=== PATIENT | female | born 1955 | race Caucasian/White ===

== ENCOUNTER 2018-02-22 21:13 | Emergency (ER) | payer OTHER ==
[~2018-02-22] VITALS: Ht 160 cm; Wt 86.2 kg
[2018-02-23] MEDS ORDERED: FURO20 PO
[2018-02-23] MEDS ORDERED: LISI5 PO
[2018-02-23] MEDS ORDERED: LEVSOD75 PO (00:01)
[2018-02-23] MEDS ORDERED: PROB500 PO (00:01)
[2018-02-23] MEDS ORDERED: Bactrim 400-801 EACH PO (02:03)
== END 2018-02-23 02:25 | disposition home or self-care (01) ==
LOC: ER 21:13
DX: L02.31 Cutaneous abscess of buttock (principal); I10 Essential (primary) hypertension; Z88.0 Allergy status to penicillin; Z88.5 Allergy status to narcotic agent; Z79.899 Other long term (current) drug therapy
CPT/HCPCS: 10060; 87070; 87205; 99282-25

== ENCOUNTER 2018-03-31 03:40 | Emergency (ER) | payer OTHER ==
[~2018-03-31] VITALS: Ht 160 cm; Wt 83.9 kg
[~2018-03-31 03:40] MED LIST: Bactrim 400-801 EACH PO; FURO20 PO; LEVSOD75 PO; LISI5 PO; PROB500 PO
[2018-03-31] MEDS ORDERED: SERT25 (04:03)
[2018-03-31] MEDS ORDERED: TRAZ50 (04:03)
[2018-03-31] MEDS ORDERED: LANS15EC (04:03)
[2018-03-31] MEDS ORDERED: Flector1 EACH TOP (04:56)
[2018-03-31] MEDS ORDERED: Percocet 5-3251 EACH PO (04:56)
== END 2018-03-31 05:14 | disposition home or self-care (01) ==
LOC: ER 03:40
DX: R07.89 Other chest pain (principal); I10 Essential (primary) hypertension; Z88.0 Allergy status to penicillin; Z88.5 Allergy status to narcotic agent; Z79.899 Other long term (current) drug therapy
CPT/HCPCS: 71046; 96372; 99283-25; J1170

== ENCOUNTER 2020-03-26 18:58 | Emergency (ER) | payer MEDICARE, BC ==
[~2020-03-26] VITALS: Ht 160 cm; Wt 85.3 kg
[~2020-03-26 18:58] MED LIST changes: +Flector1 EACH TOP; +LANS15EC; +Percocet 5-3251 EACH PO; +SERT25; +TRAZ50
[2020-03-26 19:47] LABS: BASOPHILS ABSOLUTE AUTO 0.03 K/mm3 (0.00-0.23); BASOPHILS PERCENT AUTO 0 % (0-2); EOSINOPHILS ABSOLUTE AUTO 0.13 K/mm3 (0.00-0.68); EOSINOPHILS PERCENT AUTO 1 % (0-6); Hematocrit 39.6 % (33.0-51.0); IMMATURE GRAN ABSOLUTE AUTO 0.04 K/mm3 (0.00-0.10); IMMATURE GRAN PERCENT AUTO 0 % (0-1); LYMPHOCYTES ABSOLUTE AUTO 3.42 K/mm3 (0.84-5.20); LYMPHOCYTES PERCENT AUTO 38 % (21-46); MONOCYTES ABSOLUTE AUTO 0.71 K/mm3 (0.16-1.47); MONOCYTES PERCENT AUTO 8 % (4-13); Mean Corpuscular HGB 31.3 pg (26.0-34.0); Mean Corpuscular HGB Conc 32.8 g/dL (31.5-36.5); Mean Corpuscular Volume 95 fL (80-100); Mean Platelet Volume 10.1 fL (9.1-12.4); NEUTROPHILS ABSOLUTE AUTO 4.64 K/mm3 (1.96-9.15); NEUTROPHILS PERCENT AUTO 52 % (41-73); Platelet Count 238 K/mm3 (150-400); RDW Standard Deviation 42.1 fL (35.1-46.3); Red Blood Cell Count 4.16 M/mm3 (3.80-5.20); White Blood Cell Count 8.97 K/mm3 (4.00-11.30)
[2020-03-26 20:08] LABS: Anion Gap 7 mmol/L (6-16); Blood Urea Nitrogen 21 mg/dL (8-24); Bun/Creatinine Ratio 24.4 (12.0-20.0); CO2, Blood 28 mmol/L (21-32); Calcium, Blood 9.3 mg/dL (8.5-10.1); Chloride, Blood 111 mmol/L (98-108); Creatinine, Blood 0.86 mg/dL (0.40-1.00); Glomerular Filtration Rate >60 (60-); Glucose, Blood 111 mg/dL (70-99); Potassium, Blood 4.2 mmol/L (3.5-5.5); Sodium, Blood 146 mmol/L (136-145); Troponin I <0.015 ng/mL (0.000-0.040)
[2020-03-26] MEDS ORDERED: METPRE4DP PO (20:43)
[2020-03-26] MEDS ORDERED: Roxicodone5 MG PO (20:43)
== END 2020-03-26 21:08 | disposition home or self-care (01) ==
LOC: ER 18:58
PROVIDERS: Emergency Medicine
DX: M54.12 Radiculopathy, cervical region (principal); Z79.899 Other long term (current) drug therapy
CPT/HCPCS: 80048; 84484; 85025; 93005; 93010; 96374; 96375; 99283-25; A9270; J1100; J1170

== ENCOUNTER 2020-09-12 11:36 | Day surgery (SDC) | payer MEDICARE, BC ==
[~2020-09-12] VITALS: Ht 160 cm; Wt 87.8 kg
[~2020-09-12 11:36] MED LIST changes: +METPRE4DP PO; +Roxicodone5 MG PO
[2020-09-12] MEDS ORDERED: COLCHICINE0.6 MG PO (12:00)
--- NOTE | 2020-09-12 13:18 | NUR ---
09/12/20 1318 Nicolasa Maier 1 MG EPI ADDED TO EACH OF THE FIRST 3 BAGS OF LR FOR IRRIGATION PER ORDER.
--- NOTE | 2020-09-12 15:11 | NUR ---
09/12/20 1511 Sonja Ludwig S PT. DENIES PAIN TO RIGHT SHOULDER. PT. DID FEEL A PINCHING ON MIDDLE AREA OF HER RIGHT SHOULDER BLADE UNDERNEATH TAPE. TAPE WAS LOOSENED FROM SKIN & PT. VERBALIZED THAT HELPING. PT. WITH SATS 91% ON RA, PT. ENC. TO TAKE DEEP BREATHS. PT. VERBALIZES SCRATCHY THROAT, PT. DRINKING ICE WATER. PT. DID VERBALIZE HAVING A HEADACHE. PT. EATING SOME SHORTBREAD COOKIES. PT. DENIES NAUSEA. POLAR SHILO CONNECTED. PILLOW UNDERNEATH RIGHT ARM IN RECLINER FOR SUPPORT.PT. GIVEN A WARM BLANKET. CALL LIGHT IS WITHIN REACH. REPORT GIVEN TO [facility].FLL
[2020-09-13] MEDS ORDERED: TRAZ100 PO (20:02)
[2020-09-13] MEDS ORDERED: LISI20 PO (20:02)
[2020-09-13] MEDS ORDERED: SYNTHROID100 MC6 PO (20:03)
[2020-09-13] MEDS ORDERED: SERT100 PO (20:03)
[2020-09-13] MEDS ORDERED: OXYCODONE-ACET1 EAC3 PO (20:04)
[2020-09-13] MEDS ORDERED: NEURONTIN300 MG PO (21:29)
[2020-09-16] MEDS ORDERED: BISA5EC PO (09:49)
[2020-09-16] MEDS ORDERED: MIRALAX17 GM PO (09:50)
[2020-09-16] MEDS ORDERED: CYCL10 PO (09:50)
[2020-09-17] MEDS ORDERED: GABA100 PO (15:37)
[2020-09-17] MEDS ORDERED: OXYCODONE-ACET1 EAC3 PO (15:39)
[2020-09-17] MEDS ORDERED: Acetaminophen325 M1 PO (15:40)
== END 2020-09-12 15:54 | disposition home or self-care (01) ==
LOC: ORSCSDS 11:36
PROVIDERS: Orthopaedic Surgery
PROC: 0LS34ZZ Reposition Right Upper Arm Tendon, Percutaneous Endoscopic Approach (ICD-10-PCS; principal; 2020-09-12 13:00)
PROC: 0RNJ4ZZ Release Right Shoulder Joint, Percutaneous Endoscopic Approach (ICD-10-PCS; principal; 2020-09-12 13:00)
PROC: 0LQ14ZZ Repair Right Shoulder Tendon, Percutaneous Endoscopic Approach (ICD-10-PCS; principal; 2020-09-12 13:00)
DX: M75.121 Complete rotator cuff tear or rupture of right shoulder, not specified as traumatic (principal); M75.21 Bicipital tendinitis, right shoulder; M75.41 Impingement syndrome of right shoulder; M19.011 Primary osteoarthritis, right shoulder; I10 Essential (primary) hypertension; E03.9 Hypothyroidism, unspecified; F17.210 Nicotine dependence, cigarettes, uncomplicated; Z79.899 Other long term (current) drug therapy; E66.9 Obesity, unspecified; Z68.34 Body mass index [BMI] 34.0-34.9, adult
CPT/HCPCS: C1713; J0171; J1100; J2250; J2370; J2405; J2704; J3010; J7120

== ENCOUNTER 2021-01-06 18:41 | Inpatient (IN) | payer MEDICARE, BC ==
[~2021-01-06] VITALS: Ht 162.6 cm; Wt 79.4 kg
[~2021-01-06 18:41] MED LIST changes: +Acetaminophen325 M1 PO; +BISA5EC PO; +COLCHICINE0.6 MG PO; +CYCL10 PO; +GABA100 PO; +LISI20 PO; +MIRALAX17 GM PO; +NEURONTIN300 MG PO; +OXYCODONE-ACET1 EAC3 PO
[2021-01-06 19:29] LABS: BASOPHILS PERCENT AUTO 0 % (0-2); EOSINOPHILS PERCENT AUTO 0 % (0-6); Hematocrit 39.3 % (33.0-51.0); Hemoglobin 13.2 g/dL (11.5-16.0); Mean Corpuscular HGB 30.3 pg (26.0-34.0); Mean Corpuscular HGB Conc 33.6 g/dL (31.5-36.5); Mean Corpuscular Volume 90 fL (80-100); Mean Platelet Volume 9.5 fL (9.1-12.4); Platelet Count 217 K/mm3 (150-400); RDW Standard Deviation 43.2 fL (35.1-46.3); Red Blood Cell Count 4.36 M/mm3 (3.80-5.20); White Blood Cell Count 5.59 K/mm3 (4.00-11.30)
[2021-01-06 19:33] LABS: IMMATURE GRAN ABSOLUTE AUTO 0.02 K/mm3 (0.00-0.10); IMMATURE GRAN PERCENT AUTO 0 % (0-1); LYMPHOCYTES ABSOLUTE AUTO 0.96 K/mm3 (0.84-5.20); LYMPHOCYTES PERCENT AUTO 17 % (21-46); MONOCYTES PERCENT AUTO 7 % (4-13); NEUTROPHILS ABSOLUTE AUTO 4.21 K/mm3 (1.96-9.15); NEUTROPHILS PERCENT AUTO 75 % (41-73)
[2021-01-06 19:37] LABS: PCO2 Arterial 39.1 mmHg (35-45); PO2 Arterial 66.6 mmHg (80-100); pH Blood Arterial 7.48 (7.35-7.45)
[2021-01-06 19:44] LABS: Alanine Aminotransfer (ALT/SGP 62 U/L (12-78); Albumin, Blood 3.1 g/dL (3.4-5.0); Albumin/Globulin Ratio 0.7 (0.8-1.8); Alk Phos 51 U/L (50-136); Anion Gap 8 mmol/L (6-16); Aspartate Aminotrans (AST/SGOT 70 U/L (12-37); Bilirubin, Total 0.3 mg/dL (0.1-1.0); Blood Urea Nitrogen 17 mg/dL (8-24); Bun/Creatinine Ratio 25.6 (12.0-20.0); CO2, Blood 27 mmol/L (21-32); Calcium, Blood 9.1 mg/dL (8.5-10.1); Chloride, Blood 106 mmol/L (98-108); Creatinine, Blood 0.67 mg/dL (0.40-1.00); Globulin, Blood 4.4 g/dL (2.2-4.0); Glomerular Filtration Rate >60 (60-); Glucose, Blood 114 mg/dL (70-99); Potassium, Blood 3.3 mmol/L (3.5-5.5); Sodium, Blood 141 mmol/L (136-145); Total Protein, Blood 7.5 g/dL (6.4-8.2); Troponin I <0.015 ng/mL (0.000-0.040)
[2021-01-06] MEDS ORDERED: TRAZ100 PO (20:33)
[2021-01-06] MEDS ORDERED: LISI20 PO (20:33)
[2021-01-06] MEDS ORDERED: FUROSEMIDE20 MG PO (20:33)
[2021-01-06] MEDS ORDERED: SYNTHROID100 MC6 PO (20:34)
[2021-01-06] MEDS ORDERED: SERT100 PO (20:34)
[2021-01-06] MEDS ORDERED: PROBENECID-COL1 EACH PO (20:36)
[2021-01-06] MEDS ORDERED: TRAM50 PO (20:58)
[2021-01-06] MEDS ORDERED: ASPI325EC PO (20:59)
[2021-01-07] MEDS ORDERED: Stromectol3 MG PO (03:14)
[2021-01-07 05:28] LABS: BASOPHILS PERCENT AUTO 0 % (0-2); EOSINOPHILS PERCENT AUTO 0 % (0-6); Hematocrit 38.6 % (33.0-51.0); Hemoglobin 12.8 g/dL (11.5-16.0); IMMATURE GRAN ABSOLUTE AUTO 0.03 K/mm3 (0.00-0.10); IMMATURE GRAN PERCENT AUTO 1 % (0-1); LYMPHOCYTES ABSOLUTE AUTO 0.55 K/mm3 (0.84-5.20); LYMPHOCYTES PERCENT AUTO 12 % (21-46); MONOCYTES ABSOLUTE AUTO 0.19 K/mm3 (0.16-1.47); MONOCYTES PERCENT AUTO 4 % (4-13); Mean Corpuscular HGB Conc 33.2 g/dL (31.5-36.5); Mean Corpuscular Volume 94 fL (80-100); Mean Platelet Volume 9.9 fL (9.1-12.4); NEUTROPHILS ABSOLUTE AUTO 3.65 K/mm3 (1.96-9.15); NEUTROPHILS PERCENT AUTO 83 % (41-73); Platelet Count 218 K/mm3 (150-400); RDW Coefficient Variation 13.1 % (11.7-14.2); RDW Standard Deviation 45.1 fL (35.1-46.3); Red Blood Cell Count 4.13 M/mm3 (3.80-5.20); White Blood Cell Count 4.42 K/mm3 (4.00-11.30)
[2021-01-07 06:01] LABS: Anion Gap 8 mmol/L (6-16); Blood Urea Nitrogen 18 mg/dL (8-24); Bun/Creatinine Ratio 27.5 (12.0-20.0); CO2, Blood 24 mmol/L (21-32); Calcium, Blood 8.8 mg/dL (8.5-10.1); Chloride, Blood 107 mmol/L (98-108); Creatinine, Blood 0.66 mg/dL (0.40-1.00); Glomerular Filtration Rate >60 (60-); Glucose, Blood 174 mg/dL (70-99); Potassium, Blood 4.1 mmol/L (3.5-5.5); Sodium, Blood 139 mmol/L (136-145)
--- NOTE | 2021-01-07 06:19 | NUR ---
SHIFT SUMMARY AOX4. VSS. COVID +. REPORTS ALLOVER BODY ACHE, MEDICATED 1X c TYLENOL. SOB c MINIMAL ACTIVITY, INCLUDING TALKING & MOVING IN BED. SPO2 >90% ON 4L O2, DOESNT WEAR O2 @BASELINE. DRY NON PRODUCTIVE COUGH. CALL LIGHT IN REACH & PT ABLE TO MAKE NEEDS KNOWN. WCTM.
--- NOTE | 2021-01-07 12:39 | NUR ---
Spiritual care visit conducted. I provided conversation and companionship, patient was engaged, though obviously struggling with how hard she has been impacted by covid and pneumonia. Patient was very grateful for the visit. I offered prayer which the patient graciously declined.
--- NOTE | 2021-01-07 19:35 | NUR ---
SHIFT SUMMARY PT CONTINUES TO BE ON 4L VIA NC. PT HAS HAD POOR APPETITE AND DIARRHEA TODAY. PT HAS HAD NO ACUTE CHANGES. TAKING A LOT OF NAPS. PT WORKED WITH PT-SEE NOTES. NO DISTRESS AT THIS TIME. CALL LIGHT IN REACH. WILL CONTINUE TO MONITOR AND REPORT TO ONCOMING RN.
--- NOTE | 2021-01-08 07:11 | NUR ---
SHIFT SUMMARY AOX4. REPORTS PAIN ALLOVER, MEDICATED c TYLENOL & ULTRAM. REPORTS NAUSEA, MEDICATED 1X c ZOFRAN. HAS MINIMAL APPETITE. SPO2 >90% ON 4L O2. LUNGS DIM T/O. CALL LIGHT IN REACH.
--- NOTE | 2021-01-08 20:09 | NUR ---
END OF SHIFT SUMMARY: PATIENT CONTINUES TO HAVE NAUSEA AT TIMES. HER NAUSEA HAS BEEN CONTROLLED WITH PRN MEDICATIONS, REPOSITION AND HER OWN SELF CARE. PATIENT REPORTED A HEADACHE THIS MORNING THAT RESOLVED WITH PRN MEDICATION. PATIENT REPORTED THAT SHE IS FEELING A LITTLE BETTER TODAY. PATIENT REPORTS THAT SHE IS COMFORTABLE RESTING IN BED AND MOVING INDEPENDENTLY. PATIENT REPORTS SOME SHORTNESS OF BREATH AND DIZZINESS AT TIMES WITH MOVEMENT. DISCUSSED SAFETY AND CALLING STAFF IF NEEDED. AT REST, PATIENT'S BREATHING IS EVEN WITH MINIMAL EFFORT.
[2021-01-09 05:24] LABS: BASOPHILS ABSOLUTE AUTO 0.01 K/mm3 (0.00-0.23); BASOPHILS PERCENT AUTO 0 % (0-2); EOSINOPHILS PERCENT AUTO 0 % (0-6); Hematocrit 37.3 % (33.0-51.0); Hemoglobin 12.1 g/dL (11.5-16.0); Mean Corpuscular HGB 30.3 pg (26.0-34.0); Mean Corpuscular HGB Conc 32.4 g/dL (31.5-36.5); Mean Corpuscular Volume 93 fL (80-100); Mean Platelet Volume 9.8 fL (9.1-12.4); Platelet Count 308 K/mm3 (150-400); RDW Coefficient Variation 12.9 % (11.7-14.2); RDW Standard Deviation 44.4 fL (35.1-46.3)
[2021-01-09 05:34] LABS: IMMATURE GRAN ABSOLUTE AUTO 0.04 K/mm3 (0.00-0.10); IMMATURE GRAN PERCENT AUTO 1 % (0-1); LYMPHOCYTES PERCENT AUTO 13 % (21-46); MONOCYTES ABSOLUTE AUTO 0.57 K/mm3 (0.16-1.47); MONOCYTES PERCENT AUTO 8 % (4-13); NEUTROPHILS ABSOLUTE AUTO 5.38 K/mm3 (1.96-9.15); NEUTROPHILS PERCENT AUTO 78 % (41-73)
[2021-01-09 05:52] LABS: Alanine Aminotransfer (ALT/SGP 51 U/L (12-78); Albumin, Blood 2.6 g/dL (3.4-5.0); Albumin/Globulin Ratio 0.7 (0.8-1.8); Alk Phos 43 U/L (50-136); Anion Gap 7 mmol/L (6-16); Aspartate Aminotrans (AST/SGOT 28 U/L (12-37); Bilirubin, Total 0.3 mg/dL (0.1-1.0); Blood Urea Nitrogen 27 mg/dL (8-24); Bun/Creatinine Ratio 33.3 (12.0-20.0); CO2, Blood 26 mmol/L (21-32); Calcium, Blood 8.9 mg/dL (8.5-10.1); Chloride, Blood 108 mmol/L (98-108); Creatinine, Blood 0.81 mg/dL (0.40-1.00); Ferritin, Serum 963 ng/mL (8-252); Globulin, Blood 3.8 g/dL (2.2-4.0); Glomerular Filtration Rate >60 (60-); Glucose, Blood 163 mg/dL (70-99); Lactate Dehydrogenase (Ld),Bld 250 U/L (100-240); Sodium, Blood 141 mmol/L (136-145); Total Protein, Blood 6.4 g/dL (6.4-8.2)
--- NOTE | 2021-01-09 06:18 | NUR ---
65 year old Female with covid 19 hypoxia continues on 5 l oxygen to keep sats greater than 90% . She is quiet & had planned to shower but declined at HS. Medicated for chronic pain with helpful effect. CRP elevated & LFT abn. flat affect.
--- NOTE | 2021-01-09 14:09 | NUR ---
Door remained closed , no visit pffered prayers for the pt from outside the door.
--- NOTE | 2021-01-09 18:55 | NUR ---
END OF SHIFT SUMMARY: PATIENT REPORTED GASTRIC PAIN TODAY RELATED TO EATING AND DIARRHEA. PATIENT REPORTED THAT SHE THINKS IT IS RELATED TO THE ANTI-VIRAL SHE IS RECEIVING FOR HER TREATMENT. PATIENT IS WORKING TO EAT LIGHT FOODS THAT DO NOT UPSET HER STOMACH. MEDICATED FOR PAIN AND NAUSEA. PATIENT REPORTS THAT THE K-PAD HELPS. PATIENT REPORTS THAT HER BREATHING IS IMPROVED. PATIENT REPORTS THAT OVERALL SHE IS FEELING BETTER. PATIENT UP INDEPENDENTLY IN THE ROOM WITHOUT DIFFICULTY. SHORTNESS OF BREATH CONTINUES WITH EXERTION. RECOVERS WITH REST.
--- NOTE | 2021-01-10 03:40 | NUR ---
SHIFT SUMMARY PT REPORTED ABD DISCOMFORT AND NAUSEA THIS EVENING EARLY IN SHIFT. MEDICATED W/ ZOFRAN AND ULTRAM WITH GOOD EFFECT. PT SLEPT WELL FOLLOWING. PT REPORTS IMPROVEMENT WITH BREATHING, DENIES SOB. REMAINS ON 5 L VIA NC. PT HAD AN UNEVENTFUL NIGHT. VITAL SIGNS STABLE. WILL CONTINUE TO MONITOR.
--- NOTE | 2021-01-10 16:20 | NUR ---
SHIFT SUMMARY PT IS AOX4. PT MEDICATED FOR DIARRHEA X1, COUGH X1 PER EMAR. PT DENIES N/V. PT C/O SOB DUE TO COUGH. PT IS ON 3.5 L 02 VIA NC THIS AGATHA. PT APPETITE IS POOR. FAMILY UPDATED ON PT STATUS VIA PHONE. PT IS INDEPENDENT IN ROOM. PT SHOWERED SELF THIS SHIFT. PT IS IN BED, CALL LIGHT IN REACH, LOW POSITION.
[2021-01-11 05:23] LABS: BASOPHILS ABSOLUTE AUTO 0.01 K/mm3 (0.00-0.23); BASOPHILS PERCENT AUTO 0 % (0-2); EOSINOPHILS PERCENT AUTO 0 % (0-6); Hematocrit 36.6 % (33.0-51.0); Hemoglobin 12.2 g/dL (11.5-16.0); IMMATURE GRAN ABSOLUTE AUTO 0.03 K/mm3 (0.00-0.10); IMMATURE GRAN PERCENT AUTO 1 % (0-1); LYMPHOCYTES ABSOLUTE AUTO 0.75 K/mm3 (0.84-5.20); LYMPHOCYTES PERCENT AUTO 13 % (21-46); MONOCYTES ABSOLUTE AUTO 0.36 K/mm3 (0.16-1.47); MONOCYTES PERCENT AUTO 6 % (4-13); Mean Corpuscular HGB 30.2 pg (26.0-34.0); Mean Corpuscular HGB Conc 33.3 g/dL (31.5-36.5); Mean Corpuscular Volume 91 fL (80-100); Mean Platelet Volume 9.7 fL (9.1-12.4); NEUTROPHILS ABSOLUTE AUTO 4.64 K/mm3 (1.96-9.15); NEUTROPHILS PERCENT AUTO 80 % (41-73); Platelet Count 364 K/mm3 (150-400); RDW Coefficient Variation 12.5 % (11.7-14.2); RDW Standard Deviation 42.2 fL (35.1-46.3); Red Blood Cell Count 4.04 M/mm3 (3.80-5.20); White Blood Cell Count 5.79 K/mm3 (4.00-11.30)
[2021-01-11 06:10] LABS: Alanine Aminotransfer (ALT/SGP 41 U/L (12-78); Albumin, Blood 2.7 g/dL (3.4-5.0); Albumin/Globulin Ratio 0.7 (0.8-1.8); Alk Phos 43 U/L (50-136); Anion Gap 6 mmol/L (6-16); Aspartate Aminotrans (AST/SGOT 30 U/L (12-37); Bilirubin, Total 0.4 mg/dL (0.1-1.0); Blood Urea Nitrogen 21 mg/dL (8-24); Bun/Creatinine Ratio 27.3 (12.0-20.0); CO2, Blood 29 mmol/L (21-32); Calcium, Blood 8.7 mg/dL (8.5-10.1); Chloride, Blood 106 mmol/L (98-108); Creatinine, Blood 0.77 mg/dL (0.40-1.00); Globulin, Blood 3.7 g/dL (2.2-4.0); Glomerular Filtration Rate >60 (60-); Glucose, Blood 143 mg/dL (70-99); Potassium, Blood 4.1 mmol/L (3.5-5.5); Sodium, Blood 141 mmol/L (136-145); Total Protein, Blood 6.4 g/dL (6.4-8.2)
--- NOTE | 2021-01-11 08:02 | NUR ---
NO CHANGES. VSS. PT REMOVED RIGHT HAND IV BY ACCIDENT DURING THE NIGHT WHILE SLEEPING.
--- NOTE | 2021-01-11 19:37 | NUR ---
SHIFT SUMMARY: HAVING DIARRHEA, AT LEAST 3 BM'S TODAY (INDEPENDENT TO BR); IMMODIUM GIVEN. C/O ABD PAIN, CRAMPING, AND NAUSEA; MEDICATED WITH ZOFRAN WITH ADEQUATE RELIEF FROM NAUSEA, TRAMADOL HELPED WITH PAIN. O2 @ 3 L/MIN NC, AIR TRANSPORTATION PROVIDER COUGH, STATED SHE FEELS HER BREATHING IS BETTER TODAY. NEW IV STARTED, IVF INFUSING. POOR PO INTAKE. ALSO USING HEATING PAD TO HELP WITH PAIN.
--- NOTE | 2021-01-12 04:37 | NUR ---
SHIFT SUMMARY A/O, ABLE TO MAKE NEEDS KNOWN. COOPERATIVE WITH CARE. CALLS AND ANSWERS QUESTIONS APPROPRIATELY. C/O PAIN/DISCOMFORT TO ABDOMEN/HEAD; MEDICATED PER EMAR. REMAINS NAUSEATED; MEDICATED PER MAR FOR THIS WELL. APPEARED TO REST MUCH OF THE SHIFT. REMAINS ON 3L VIA NC /c SPO2 >90%. STILL HAS NON-PRODUCTIVE COUGH, BUT SPEAKING IN FULL SENTENCES WITH EQUAL RISE AND FALL. NO ACUTE CHANGES NOTED. BED REMAINS IN LOWEST POSITION. CALL LIGHT AND BELONGINGS WITHIN REACH. CONTINUE WITH CURRENT PLAN OF CARE.
[2021-01-12 06:08] LABS: BASOPHILS PERCENT AUTO 0 % (0-2); EOSINOPHILS ABSOLUTE AUTO 0.02 K/mm3 (0.00-0.68); EOSINOPHILS PERCENT AUTO 0 % (0-6); Hematocrit 35.8 % (33.0-51.0); Hemoglobin 11.9 g/dL (11.5-16.0); IMMATURE GRAN ABSOLUTE AUTO 0.08 K/mm3 (0.00-0.10); IMMATURE GRAN PERCENT AUTO 1 % (0-1); LYMPHOCYTES ABSOLUTE AUTO 0.67 K/mm3 (0.84-5.20); LYMPHOCYTES PERCENT AUTO 11 % (21-46); MONOCYTES ABSOLUTE AUTO 0.32 K/mm3 (0.16-1.47); MONOCYTES PERCENT AUTO 5 % (4-13); Mean Corpuscular HGB 30.6 pg (26.0-34.0); Mean Corpuscular HGB Conc 33.2 g/dL (31.5-36.5); Mean Corpuscular Volume 92 fL (80-100); Mean Platelet Volume 10.1 fL (9.1-12.4); NEUTROPHILS ABSOLUTE AUTO 5.31 K/mm3 (1.96-9.15); NEUTROPHILS PERCENT AUTO 83 % (41-73); Platelet Count 360 K/mm3 (150-400); RDW Coefficient Variation 12.5 % (11.7-14.2); RDW Standard Deviation 42.1 fL (35.1-46.3); Red Blood Cell Count 3.89 M/mm3 (3.80-5.20)
[2021-01-12 06:31] LABS: Alanine Aminotransfer (ALT/SGP 37 U/L (12-78); Albumin, Blood 2.6 g/dL (3.4-5.0); Albumin/Globulin Ratio 0.7 (0.8-1.8); Alk Phos 40 U/L (50-136); Anion Gap 7 mmol/L (6-16); Aspartate Aminotrans (AST/SGOT 21 U/L (12-37); Bilirubin, Total 0.5 mg/dL (0.1-1.0); Blood Urea Nitrogen 18 mg/dL (8-24); Bun/Creatinine Ratio 23.7 (12.0-20.0); CO2, Blood 28 mmol/L (21-32); Calcium, Blood 8.5 mg/dL (8.5-10.1); Chloride, Blood 105 mmol/L (98-108); Creatinine, Blood 0.76 mg/dL (0.40-1.00); Globulin, Blood 3.6 g/dL (2.2-4.0); Glomerular Filtration Rate >60 (60-); Glucose, Blood 136 mg/dL (70-99); Potassium, Blood 3.8 mmol/L (3.5-5.5); Sodium, Blood 140 mmol/L (136-145); Total Protein, Blood 6.2 g/dL (6.4-8.2)
--- NOTE | 2021-01-12 07:20 | NUR ---
SHIFT SUMMARY NO ACUTE CHANGES, VSS. PT DENIES NAUSEA THROUGH OUT THE EVENING, WAS ABLE TO SLEEP. DENIES DIFFICULTY BREATHING. O2 THROUGH NC AT 3.5 LPM, SATING ABOVE 90%/
--- NOTE | 2021-01-12 20:41 | NUR ---
SHIFT SUMMARY: NO ACUTE EVENTS. PT STATED SHE FEELS MUCH BETTER, LOOKS BETTER. ABD PAIN HAS IMPROVED, GAVE TRAMADOL X 1. STILL HAVING NAUSEA AND DIARRHEA, BUT THESE HAVE ALSO IMPROVED. TOLERATING PO INTAKE. ABLE TO TAKE A SHOWER. O2 @ 3 L/MIN NC, OCC VICE PRESIDENT SAFETY COUGH.
--- NOTE | 2021-01-13 06:58 | NUR ---
SHIFT SUMMARY PT HAD AN EPISODE OF DIARRHEA EARLY IN THE SHIFT, REPORTED IT WAS YELLOW. RECEIVED IMMODIUM PRN. SHE REPORTED IT HELPED, AND SLEPT WELL THE REST OF THE SHIFT. HALF NORMAL SALINE FLUIDS INFUSING AT 100ML/HR. SHE IS LOOKING FORWARD TO DISCHARGE SOON. NO ACUTE CHANGES. WILL CONTINUE TO MONITOR AND GIVE REPORT TO DAY SHIFT NURSE.
[2021-01-13] MEDS ORDERED: ELIQUIS2.5 MG PO (12:25)
[2021-01-13] MEDS ORDERED: METPRE4 PO (12:25)
[2021-01-13] MEDS ORDERED: Humibid-LA 600600 MG PO (12:26)
[2021-01-13] MEDS ORDERED: LOPE2C PO (12:27)
[2021-01-13] MEDS ORDERED: PROB500 PO (12:27)
[2021-01-13] MEDS ORDERED: ZINC220 PO (12:28)
[2021-01-13] MEDS ORDERED: THERA-D2000 UNIT PO (12:28)
--- NOTE | 2021-01-13 13:50 | NUR ---
Spiritual Care visit provided: Susan felt well enough now that she is ready to be discharged for me to come in and visit with her. I shared encouragement that she was greatly improved and able to go home. She was elated with her progress and grateful for the visit.
--- NOTE | 2021-01-13 14:21 | NUR ---
Pt. improved and is discharged for home
--- NOTE | 2021-01-13 14:56 | NUR ---
DISCHARGE SUMMARY PT DC AT APPROX 1410. PT AxOx4. PLEASANT AND COOPERATIVE WITH CARE. PT DISCHARGING TO HOME WITH . PT GIVEN DC INSTRUCTIONS, INCLUDING FOLLOW UP APPTS, O2 SUPPLEMENTATION INSTRUCTION AND DC MEDICATIONS. PT VERBALIZES UNDERSTANDING AND DENIES ANY FURTHER QUESTIONS AT THIS TIME. VITAL SIGNS REVIEWED. PT SAFELY ESCORTED OUT VIA WC WITH VOLUNTEER.
--- NOTE | 2021-01-13 16:36 | NUR ---
Oxygen ordered for pt. through [facility] 2-4 LPM. Delivered to hospital. Pt. given samples of Eliquis 2.5mg BID x 1 month. Scheduled for hospital F/U on 01/17/21 at 11am Telehealth with PCP. Discharge instructions reviewed with pt. by nurse. on floor.
== END 2021-01-13 14:10 | disposition home or self-care (01) | DRG 177 ==
LOC: ER 18:41 → MEDS 18:42 → ERHOLD 18:42 → ER 21:24 → ERHOLD 21:24 → MEDS 22:24 → ENPENDDIS 01-13 12:53 → MEDS 01-13 14:10
PROVIDERS: Emergency Medicine; Family Medicine; Hospitalist; Internal Medicine; Student in an Organized Health Care Education/Training Program; ADMIT Internal Medicine
PROC: XW033E5 Introduction of Remdesivir Anti-infective into Peripheral Vein, Percutaneous Approach, New Technology Group 5 (ICD-10-PCS; principal; 2021-01-06)
PROC: 3E0333Z Introduction of Anti-inflammatory into Peripheral Vein, Percutaneous Approach (ICD-10-PCS; 2021-01-06)
DX: U07.1 COVID-19 (principal); J12.82 Pneumonia due to coronavirus disease 2019; J96.01 Acute respiratory failure with hypoxia; K52.1 Toxic gastroenteritis and colitis; A08.39 Other viral enteritis; M19.019 Primary osteoarthritis, unspecified shoulder; I10 Essential (primary) hypertension; E03.9 Hypothyroidism, unspecified; G62.9 Polyneuropathy, unspecified; G47.00 Insomnia, unspecified; F32.9 Major depressive disorder, single episode, unspecified; T37.5X5A Adverse effect of antiviral drugs, initial encounter; M10.9 Gout, unspecified; J45.909 Unspecified asthma, uncomplicated; E87.6 Hypokalemia; Z88.0 Allergy status to penicillin; Z88.5 Allergy status to narcotic agent; Z90.710 Acquired absence of both cervix and uterus; Z98.890 Other specified postprocedural states; Z79.899 Other long term (current) drug therapy; Z87.891 Personal history of nicotine dependence
CPT/HCPCS: 36415; 36600; 71045; 80048; 80053; 82728; 82803; 83615; 83690; 83880; 84145; 84484; 85025; 85379; 86140; 93005; 93010; 94760; 94762; 96361; 96372; 96374; 97110; 97116; 97161; 97530; 99285-25; A9270; G0378; J1100; J1650; J7030